=== PATIENT | female | born 1995 | race Caucasian/White ===

== ENCOUNTER 2016-12-29 09:31 | Emergency (ER) | payer BC ==
[2016-12-29 09:39] VITALS: O2SAT 95
--- NOTE | 2016-12-29 10:36 | EDPHY ---
H & P Time Seen by Provider: 12/29/16 09:53 HPI/ROS: CHIEF COMPLAINT: sore throat HISTORY OF PRESENT ILLNESS: Patient is a 21-year-old female with a history of epilepsy who presents emergency department was 3 days sore throat. She describes it is bilateral. It is moderate. It is worse with swallowing. She has no shortness of breath or cough. She has had mild chills but no measured fever. She has had mild nausea with no vomiting. Patient is going to [place] tomorrow for a project. REVIEW OF SYSTEMS: My complete review of systems is negative except as mentioned in the HPI. Past Medical/Surgical History: Epilepsy Past surgical history: Negative Social history: Patient does not smoke. Smoking Status: Never smoked Physical Exam: Vitals noted GENERAL: Well-appearing, in no acute distress, alert. HEENT: Eyes normal to inspection, no signs of dehydration. Patient's pharynx is mildly swollen bilaterally. Uvula is midline. There is white colored discharge. NECK: No thyromegaly, mild bilateral anterior lymphadenopathy, supple. RESPIRATORY: Clear to auscultation bilaterally, no rales, rhonchi or wheezing. CVS: Regular rate and rhythm, no rubs, murmurs, or gallops. ABDOMEN: Soft, nontender, nondistended, no organomegaly. BACK: Normal to inspection, no CVA tenderness. SKIN: Normal color, no rash, warm, dry. No pallor. EXTREMITIES: No pedal edema, no joint swelling. NEURO/PSYCH: Alert and oriented, normal mood and affect, normal motor sensory exam. Constitutional: Initial Vital Signs Temperature (C) 37 C 12/29/16 09:36 Heart Rate 109 H 12/29/16 09:36 Respiratory Rate 16 12/29/16 09:36 Blood Pressure 110/71 12/29/16 09:36 O2 Sat (%) 95 12/29/16 09:36 O2 Delivery Mode Room Air Allergies/Adverse Reactions: flaxseed Allergy (Verified 12/29/16 09:40) ALMONDS Allergy (Uncoded 12/29/16 09:40) Home Medications: Medication Instructions Recorded LaMICtal 12/29/16 Penicillin V Potassium [Pen Vk] 500 mg PO TID #30 tab 12/29/16 Medical Decision Making ED Course/Re-evaluation: In the emergency department I discussed possible etiologies with the patient. The patient will be given a prescription for penicillin. I discussed this the patient and answered all her questions. She was given warnings prior to leaving. Differential Diagnosis: My differential includes but is not limited to pharyngitis, strep pharyngitis, epiglottitis, tracheitis, peritonsillar abscess, retropharyngeal abscess, bacteremia, sepsis - Data Points Laboratory Results: 12/29/16 10:11 Group A Strep Screen Pending Departure - Departure Disposition: Home, Routine, Self-Care Clinical Impression: Acute pharyngitis Qualifiers: Pharyngitis/tonsillitis etiology: unspecified etiology Qualifier Code: (J02.9) Acute pharyngitis, unspecified Condition: Good Instructions: Pharyngitis (ED) Additional Instructions: Take your entire course of antibiotics. Return with worsening symptoms or concerns. Referrals: NAYELI WANG [Primary Care Provider] - 2-3 days, call for appt. Prescriptions: Penicillin V Potassium [Pen Vk] 500 mg PO TID #30 tab
[2016-12-29 11:02] VITALS: BP 112/88; PULSE 105; RESP 18; TEMP 98.8
== END 2016-12-29 11:12 | disposition home or self-care (01) ==
DX: J02.9 Acute pharyngitis, unspecified (principal)